=== PATIENT | female | born 1930 | race Caucasian/White ===

== ENCOUNTER → 2016-06-25 | Outpatient (CLI) | payer MEDICARE, OTHER ==
[~2016-06-25] MED LIST: AMLODIPINE-BEN1 EAC1 PO; ASPIRIN81 M2 PO; ASPIRIN81 MG PO; BACITRACIN30 GM TOP; BONIVA150 MG PO; BRIMONIDINE5 ML OU; CENTRUM SILVER1 EAC3 PO; COLACE PO; COSOPT EYE DROPS5 ML OP; COSOPT EYE DROPS5 ML OU; COUMADIN2.5 MG PO; DORZOLAMIDE-TIM10 ML OU; DUONEB 2.5-0.5 M3 ML NEB; FERROUS SULFATE PO; HCTZ PO; HYDROCHLOROTH12.5 MG PO; HYDROCODON-ACE1 EAC7 PO; KETOROLAC TROMET5 M1 OP; LEVAQUIN PO; LORTAB 5/500 TA1 TA1 PO; MIRALAX17 G1 PO; MYLANTA GAS80 MG PO; NEXIUM PO; OMNIPRED10 ML OP; PAXIL PO; PROMOD946 ML PO; PROTONIX PO; XALATAN OU; ZOCOR20 MG PO
--- NOTE | ~2016-06-25 | US77 ---
[facility] A Service of [facility] RADIOLOGY TEXT RESULTS PATIENT: EFREN AHMPTON LOCATION: [facility] : 30 UNIT #: [id number] AGE: [address]: Sera Rice APRN SEX: F ORDER DR: [id number] [address] [address] [id number] O MR#: [id number] Acc #: [id number] NAME: EFREN HAMPTON : 1930 SEX: F STUDY DATE/TIME: 06/25/2016 15:24 UNIT: [facility] ROOM: STUDY DESCRIPTION: US Kidney Bilateral Complete Attending Physician: Sera Rice A.P.R.N. Referring Physician: Sera Rice A.P.R.N. Ordering Physician: Sera Rice A.P.R.N. Primary Care Physician: Maddison Puente M.D. MEDICAL IMAGING REPORT This report is preliminary unless electronic signature is present. EXAM Bilateral renal ultrasound 06/25/2016 INDICATION 85-year-old female with an elevated serum creatinine. Abnormal labs in May of this year demonstrating creatinine 1.4, BUN 27. TECHNIQUE Sonographic imaging of the kidneys was performed bilaterally. Correlation is made with right upper quadrant 11/21/2015. COMPARISON Ultrasound 01/26/2011. FINDINGS Right kidney measures 11.3 x 4.9 x 4.4 cm. Left kidney measures 11.4 x 5.1 x 4.5 cm. Both kidneys demonstrate cortical thinning, increased echogenicity and loss of expected corticomedullary differentiation, most characteristic of chronic renal parenchymal disease. There is a probable trace amount of perirenal fluid on the right. The technologist has placed calipers upon an area of decreased echogenicity in the [id number] pole right kidney measuring 16 mm. There is no internal color-flow. This could represent a mildly prominent neha in the lower pole right kidney or small cyst. It cannot be classified as a simple cyst, however. It will require at least interval followup to assess stability, but would preferably be best further characterized with a renal protocol CT scan. On the left, there is at least mild central hydronephrosis. Etiology is unclear. The technologist has placed calipers upon an area of increased echogenicity in the region of the left renal pelvis. This is entirely nonspecific and does not appear to represent a shadowing stone and may simply represent volume averaging of adjacent renal medullary tissue. Etiology for the hydronephrosis on the left is unclear. The bladder is [facility] A Service of [facility] RADIOLOGY TEXT RESULTS PATIENT: EFREN HAMPTON LOCATION: [facility] : 30 UNIT #: [id number] AGE: [address]: Sera Rice APRN SEX: F ORDER DR: not well distended but otherwise unremarkable. IMPRESSION 1. The kidneys demonstrate imaging features most characteristic of chronic renal parenchymal disease. 2. There is at least mild hydronephrosis of the left kidney and the etiology is unclear. Suggest further evaluation of the kidneys with a renal protocol with and without contrast CT for further assessment of the potential etiology for the hydronephrosis on the left and an indeterminate hypoechoic lesion in the lower pole right kidney measuring up to about 1.6 cm. 3. Small amount of perirenal fluid on the right, nonspecific. 4. Bladder not well distended but otherwise unremarkable. STAT * RESULT Dictated by... Billy Soares M.D. THIS IS AN ELECTRONICALLY VERIFIED REPORT Billy Soares M.D. at 06/26/2016 11:01 AM GABBIE/laura TD: 06/26/2016 08:44 JOB #: [id number] MEDICAL IMAGING REPORT
== END | disposition home or self-care (01) ==
LOC: SGUS 15:03
DX: R79.89 Other specified abnormal findings of blood chemistry (principal); N13.30 Unspecified hydronephrosis
CPT/HCPCS: 76775

== ENCOUNTER → 2016-07-23 | Day surgery (SDC) | payer MEDICARE, OTHER ==
--- NOTE | ~2016-07-23 | EKG ---
PATIENT: EFREN HAMPTON UNIT #: [id number] Ventricular Rate: 60 BPM Atrial Rate: 60 BPM P-R Interval: 210 ms QRS Duration: 96 ms Q-T Interval: 420 ms QTC Calculation(Bezet): 420 ms P [place]: 76 degrees Calculated R [place]: 4 degrees Calculated T [place]: 31 degrees Diagnosis Line: Sinus rhythm with marked sinus arrhythmia with 1st Diagnosis Line: degree A-V block Diagnosis Line: Minimal voltage criteria for LVH, may be normal Diagnosis Line: variant Diagnosis Line: Possible Inferior infarct , age undetermined Diagnosis Line: Abnormal ECG Diagnosis Line: Diagnosis Line: Confirmed by EVAN SAINI MD ([id number]) on 07/23/2016 Diagnosis Line: 11:03:52 PM INTERPRETING MD: PARVEEN ARTIS
--- NOTE | ~2016-07-23 | OR ---
Unit #: [id number] #: [id number] Patient: EFREN HAMPTON [id number] [address] [place], [place] [address] [id number] O MR#: [id number] NAME: EFREN HAMPTON ROOM: Date of Procedure: 07/23/2016 Admission Date: 07/23/2016 Surgeon: Will Davis M.D. : 1930 Attending Physician: Will Davis M.D. Primary Care Physician: Maddison Puente M.D. OPERATIVE REPORT PREOPERATIVE DIAGNOSIS Left renal calculus. POSTOPERATIVE DIAGNOSIS Left renal calculus. PROCEDURES PERFORMED 1. Cystoscopy. 2. Left ureteroscopy. 3. Laser lithotripsy. 4. Left retrograde pyelogram. 5. Interpretation of left retrograde pyelogram. 6. Left 7-[place] x 24 cm double-J stent, no string attached. ANESTHESIA General. INDICATIONS FOR PROCEDURE Ms. Hampton is a pleasant 85-year-old female with left renal pelvis and UPJ stone. The risks, benefits, and alternatives, including bleeding, infection, damage to adjacent structures, need for further surgery, as well as risk of anesthesia were explained to the patient. Informed consent was obtained. She wished to proceed. DESCRIPTION OF PROCEDURE The patient was taken to the operative suite and properly identified. After the application of satisfactory general anesthetic, the patient was placed in dorsal lithotomy position. Genitalia were prepped and draped in usual sterile fashion. I introduced a rigid 22-[place] cystoscope. The entire urethra was normal. Bladder had no tumors, stones, or masses. I identified the left ureteral orifice. I passed a 0.035 Sensor wire. I sequentially dilated the ureter from 6-[place] to 12-[place]. I passed the 11 x 13-[place] x 35 cm ureteral Access sheath over the wire into the proximal ureter. I passed a flexible ureteroscope. There was a large amount of clot in her pelvis and I spent a pretty good amount of time removing the clot using the Nitinol basket. I was then able to visualize the stone. I treated the 2 stones, the stone in the UPJ and then a stone in the mid pole. I used holmium laser and started setting of 0.6 joules and 10 Hz. These were actually very hard stones and I increased to 1.2 joules and 10 Hz. Stone was ultimately fragmented well using Nitinol basket and removed all significant stone fragments. I mapped out the collecting system completely. I shot a left retrograde pyelogram. The Unit #: [id number] #: [id number] Patient: EFREN HAMPTON findings were as follows. Interpretation of left retrograde pyelogram. There was no hydronephrosis. There was a single collecting system. There were no filling defects. I carefully looked my way out of the ureter. I replaced the wire. I passed a 6-[place] x 26 cm double-J stent, which coiled in the renal pelvis and in the bladder. No string was attached. Bladder was emptied. The scope was removed. The Uro-jet was passed. The patient tolerated the procedure well without complications. PLAN I will leave the stent for 2 weeks. She will need a cysto and stent removal. No x-rays were required. Dictated by... Randy Perez/immanuel TD: 07/24/2016 00:02 JOB #: [id number] OPERATIVE REPORT Page 1 of 1 X Will Davis MD PROCEDURE OPERATIVE NOTE
[2016-07-23 14:00] LABS: HEMATOCRIT 46.2 % (35.0-45.0); HEMOGLOBIN 14.8 gm/dL (12.0-16.0); MEAN CORPUSCULAR HEMOGLOBIN 28.9 PG (28-34); MEAN CORPUSCULAR HGB CONC 32.1 g/dL (30-36); MEAN PLATELET VOLUME 8.4 FL (6.5-11.5); RED BLOOD COUNT 5.13 X10e (3.90-5.30); RED CELL DISTRIBUTION WIDTH 14.1 % (11.0-15.5); WHITE BLOOD COUNT 9.1 X10e3 (4.0-10.5)
[2016-07-23 16:00] LABS: BUN/CREATININE RATIO 21.81; CALCIUM SERUM 9.8 mg/dL (8.4-10.2); CREATININE SERUM 1.1 mg/dL (0.6-1.4); GLOM FILT RATE Estimated 45.8 mL/min (>60); POTASSIUM 4.8 mmol/L (3.5-5.1)
== END | disposition home or self-care (01) ==
LOC: CSUR 13:07
PROVIDERS: Urology
DX: N20.2 Calculus of kidney with calculus of ureter (principal); I10 Essential (primary) hypertension; K21.9 Gastro-esophageal reflux disease without esophagitis; Z88.5 Allergy status to narcotic agent
CPT/HCPCS: 80048; 82365; 85027; 88300; 93005; C1758; C2617; J0696; J1885; J2405; J3010